=== PATIENT | female | born 1965 | race Two or more races ===

== ENCOUNTER 2024-01-10 15:33 | Emergency (ER) | payer OTHER ==
[~2024-01-10] VITALS: Ht 165.1 cm; Wt 79.8 kg
[2024-01-10] MEDS ORDERED: SIMVASTATIN20 MG (15:58)
[2024-01-10] MEDS ORDERED: TOPROL XL100 M1 (15:58)
== END 2024-01-10 18:45 | disposition home or self-care (01) ==
LOC: ER 15:34
DX: S99.812A Other specified injuries of left ankle, initial encounter (principal); S89.92XA Unspecified injury of left lower leg, initial encounter; S49.90XA Unspecified injury of shoulder and upper arm, unspecified arm, initial encounter; W19.XXXA Unspecified fall, initial encounter; Y93.89 Activity, other specified; Y92.59 Other trade areas as the place of occurrence of the external cause; Y99.8 Other external cause status; M79.81 Nontraumatic hematoma of soft tissue; I10 Essential (primary) hypertension; Z88.2 Allergy status to sulfonamides